=== PATIENT | male | born 1970 | race Caucasian/White ===

== ENCOUNTER 2020-01-26 18:13 | Inpatient (IN) ==
[2020-01-26] MEDS ORDERED: SODIUM CHLORIDE 0.9% 1000ML 1,000 ML IV ONE (20:02)
--- NOTE | 2020-01-26 20:17 | XRay Report ---
XR chest 1V portable CLINICAL HISTORY: SEPSIS COMPARISON STUDY: No previous studies for comparison. FINDINGS: The heart is normal in size. There are subtle wispy opacities at the base of the right uppe r lobe, within the left midlung zone, as well as the right lung base. A subtle multifocal pneumonitis cannot be excluded. Clinical and radiographic follow-up is recommended. There are no pleural effusio ns.[ IMPRESSION: 1. Subtle bilateral wispy opacities. These could be atelectatic or represent a subtle multifocal pneu monitis. Clinical and radiographic follow-up is recommended. ACT 112: Negative or not required by law. Electronically signed by: Raymundo Oliveira M.D. 01/26/2020 8:16 PM
--- NOTE | 2020-01-26 20:33 | Emergency Department Note ---
Impression & Plan Pneumonia due to 2019 novel coronavirus, SOB (shortness of breath) ED Provider Note NAME: PATRICK LUEVANO AGE: 49 SEX: M : 1970 ARRIVES VIA: Walk-In INFORMANT: Patient, ED PROVIDER(S): Zaid Maldonado DO CHIEF COMPLAINT: Cough HPI: The patient is a 49-year-old male who presented to the emergency department for an evaluation of fever and cough. The patient's been having ongoing symptoms over the last few weeks. He was tested for COVID-19 and was positive. He had multiple exposures with family members who are also positive for COVID- 19. He has been experiencing intermittent fevers. He has been taking Motrin and Tylenol with some relief of his symptoms. He has noticed an intermittently productive cough. He denies having any chest pain or lower extremity swelling. He has not seen his family doctor for the symptoms. ROS: See above HPI for pertinent positives & negatives. A total of 10 systems reviewed and were otherwise negative. PAST MEDICAL HISTORY: See Below PAST SURGICAL HISTORY: See Below FAMILY HISTORY: See Below SOCIAL HISTORY: See Below HOME MEDICATIONS: See Below ALLERGIES: See Below VITALS: See Below PHYSICAL EXAMINATION: GENERAL: Patient is awake alert in no acute distress patient is resting comfortably and showing no signs of anxiety EYES: The conjunctivae are clear. The pupils are round and reactive. EARS, NOSE, MOUTH AND THROAT: The nose is without any evidence of any deformity. Mucous membranes are moist. Tongue is midline. NECK: The neck is nontender and supple. RESPIRATORY: Diminished breath sounds are noted throughout. There is no wheezing noted. CARDIOVASCULAR: Regular rate and rhythm noted there no murmurs rubs or gallops normal S1 normal S2. GASTROINTESTINAL: The abdomen is soft. Abdomen is nontender. MUSCULOSKELETAL/EXTREMITIES: There is no evidence of gross deformity full range of motion is noted in the hips and shoulders. SKIN: There is no obvious evidence of any rash. There are no petechiae, pallor or cyanosis noted. NEUROLOGIC: Patient is awake alert and oriented x3 strength is symmetric patellar reflexes are 2+ bilaterally MEDICAL DECISION MAKING: The patient is a 49-year-old male who presented to the emergency department for an evaluation of cough and difficulty breathing. The patient's been experiencing febrile illness. Multiple family members were positive for COVID-1 9. The patient was tested and was positive for COVID-19. His symptoms started to worsen especially over the last 24 to 48 hours. He was found to have significant tachypnea and bronchospasm. I discussed the patient's laboratory and radiographic studies with him. Chest x-ray does appear to be consistent with bilateral pneumonia which is likely due to Covid. The patient's oxygen saturation was acceptable but fluctuated from the low 90s to the middle 90s. Given these findings I feel the patient may require further inpatient management. I discussed this case with the on-call [facility]ist. They have agreed to evaluate the patient in the emergency department for further management and disposition. Triage Nursing notes reviewed. Prior medical records reviewed Vital Signs: reviewed and remarkable for tachypnea. Differential diagnosis: Reactive airway disease, pneumonia, pneumothorax, COPD, CHF, infections, cardiac ischemia, pulmonary embolism, musculoskeletal, gastrointestinal, as well as other pathologies. ER treatment provided: See below Diagnostics interpreted by me: ECG: EKG was obtained in the emergency department. My interpretation is normal sinus rhythm at 87 bpm. There is no ectopy. There is no acute ST segment abnormalities noted. This was compared to a tracing from February 202018. No significant changes were noted. Cardiac Monitoring: An order was placed for continuous cardiac monitoring. The monitor shows a rate of 98 bpm with sinus rhythm. Laboratory studies: As stated above and show below. Imaging studies: See below Consultation(s): I discussed this case with Dr. Metaclf who is on-call for the [facility]ist group. 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 Social History Smoking Status: Never smoker Feels Safe at Home: Yes Allergies Allergies Allergy/AdvReac Type Severity Reaction Status Date / Time No Known Allergies Allergy Verified 01/26/20 22:11 Home Meds Home Medications Medication Instructions Recorded Confirmed acetaminophen [Tylenol Extra 1,000 mg PO Q6H PRN 01/26/20 01/26/20 Strength] ibuprofen [Motrin IB] 400 mg PO Q6H PRN 01/26/20 01/26/20 Results & Data (ED) Vital Signs Vital Signs - 24 hr 01/26/20 18:21 01/26/20 20:13 01/26/20 21:00 Temperature 37.0 C Temperature Source Oral Pulse Rate 96 H 91 H Pulse Rate [Left Finger] 95 H Pulse Rate from SpO2 Sensor 91 H Respiratory Rate 18 20 Respiratory Effort / Characteristics Non-Labored Spontaneous Respiratory Depth Normal Respiratory Pattern Regular Blood Pressure 104/66 122/72 Blood Pressure [Right Arm] 122/72 Blood Pressure Mean 78 78 Blood Pressure Mean [Right Arm] 88 Blood Pressure Position Sitting Pulse Oximetry 97 92 95 Oxygen Delivery Method Room Air Room Air Sepsis Recent Fever Within 48 Hours No Sepsis New/Unexplained Change in Mental Status N/A Sepsis Action Taken by Nursing No Action Required 01/26/20 21:29 01/26/20 21:30 01/26/20 22:00 Temperature Temperature Source Pulse Rate 90 88 92 H Pulse Rate [Left Finger] Pulse Rate from SpO2 Sensor 90 88 93 H Respiratory Rate 24 23 26 H Respiratory Effort / Characteristics Respiratory Depth Respiratory Pattern Blood Pressure 141/81 H 133/86 Blood Pressure [Right Arm] Blood Pressure Mean 97 99 Blood Pressure Mean [Right Arm] Blood Pressure Position Pulse Oximetry 94 95 95 Oxygen Delivery Method Sepsis Recent Fever Within 48 Hours Sepsis New/Unexplained Change in Mental Status Sepsis Action Taken by Nursing 01/26/20 22:30 Temperature Temperature Source Pulse Rate 94 H Pulse Rate [Left Finger] Pulse Rate from SpO2 Sensor 95 H Respiratory Rate 25 H Respiratory Effort / Characteristics Respiratory Depth Respiratory Pattern Blood Pressure 125/85 Blood Pressure [Right Arm] Blood Pressure Mean 93 Blood Pressure Mean [Right Arm] Blood Pressure Position Pulse Oximetry 94 Oxygen Delivery Method Sepsis Recent Fever Within 48 Hours Sepsis New/Unexplained Change in Mental Status Sepsis Action Taken by Long Term Medications Current Medication List: was personally reviewed by me Laboratory Data Attestation: I reviewed the patient's lab results. Result diagrams: 01/26/20 20:13 01/26/20 20:13 Lab Results 01/26/20 01/26/20 01/26/20 Range/Units 20:13 20:13 20:13 WBC 4.39 L (4.8-10.8) K/uL RBC 5.20 (4.7-6.1) M/uL Hgb 15.6 (14.0-18.0) g/dL Hct 45.6 (42-52) % MCV 87.7 (80-100) fL MCH 30.0 (25-34) pg MCHC 34.2 (32-36) g/dL RDW Std Deviation 43.2 (36.4-46.3) fL RDW Coeff of Elma 13.4 (11.5-14.5) % Plt Count 134 (130-400) K/uL MPV 10.2 (7.4-10.4) fL Immature Gran % (Auto) 0.2 % Neut % (Auto) 65.4 % Lymph % (Auto) 21.0 % Person % (Auto) 13.2 % Eos % (Auto) 0.0 % Baso % (Auto) 0.2 % Neut # (Auto) 2.87 (1.4-6.5) K/uL Lymph # (Auto) 0.92 L (1.2-3.4) K/uL Person # (Auto) 0.58 (0.11-0.59) K/uL Eos # (Auto) 0.00 (0-0.5) K/uL Baso # (Auto) 0.01 (0-0.2) K/uL Immature Gran # (Auto) 0.01 (0.00-0.02) K/uL PT 10.5 (9.0-12.0) Seconds INR 1.0 (0.9-1.1) APTT 34.6 H (21.0-31.0) Seconds PTT Ratio 1.2 Sodium 136 (136-145) mmol/L Potassium 3.8 (3.5-5.1) mmol/L Chloride 103 (98-107) mmol/L Carbon Dioxide 28 (21-32) mmol/L Anion Gap 5.0 (3-11) BUN 17 (7-18) mg/dl Creatinine 1.35 (0.6-1.4) mg/dl Est Cr Clr Drug Dosing 88.4 ml/min Est GFR ( Amer) 70.4 Est GFR (Non-Af Amer) 60.8 BUN/Creatinine Ratio 12.2 (10-20) Glucose 91 (70-99) mg/dl Lactate (0.4-2.0) mmol/L Calcium 8.3 L (8.5-10.1) mg/dl Magnesium 2.3 (1.8-2.4) mg/dl Total Bilirubin 0.9 (0.2-1) mg/dl AST 37 (15-37) U/L ALT 30 (12-78) U/L Alkaline Phosphatase 67 (45-117) U/L Troponin I < 0.015 (0-0.045) ng/ml Total Protein 7.5 (6.4-8.2) gm/dl Albumin 3.7 (3.4-5.0) gm/dl Globulin 3.8 (2.5-4.0) gm/dl Albumin/Globulin Ratio 1.0 (0.9-2) Procalcitonin (0-0.5) ng/ml 01/26/20 01/26/20 Range/Units 20:13 20:13 WBC (4.8-10.8) K/uL RBC (4.7-6.1) M/uL Hgb (14.0-18.0) g/dL Hct (42-52) % MCV (80-100) fL MCH (25-34) pg MCHC (32-36) g/dL RDW Std Deviation (36.4-46.3) fL RDW Coeff of Elma (11.5-14.5) % Plt Count (130-400) K/uL MPV (7.4-10.4) fL Immature Gran % (Auto) % Neut % (Auto) % Lymph % (Auto) % Person % (Auto) % Eos % (Auto) % Baso % (Auto) % Neut # (Auto) (1.4-6.5) K/uL Lymph # (Auto) (1.2-3.4) K/uL Person # (Auto) (0.11-0.59) K/uL Eos # (Auto) (0-0.5) K/uL Baso # (Auto) (0-0.2) K/uL Immature Gran # (Auto) (0.00-0.02) K/uL PT (9.0-12.0) Seconds INR (0.9-1.1) APTT (21.0-31.0) Seconds PTT Ratio Sodium (136-145) mmol/L Potassium (3.5-5.1) mmol/L Chloride (98-107) mmol/L Carbon Dioxide (21-32) mmol/L Anion Gap (3-11) BUN (7-18) mg/dl Creatinine (0.6-1.4) mg/dl Est Cr Clr Drug Dosing ml/min Est GFR ( Amer) Est GFR (Non-Af Amer) BUN/Creatinine Ratio (10-20) Glucose (70-99) mg/dl Lactate 0.9 (0.4-2.0) mmol/L Calcium (8.5-10.1) mg/dl Magnesium (1.8-2.4) mg/dl Total Bilirubin (0.2-1) mg/dl AST (15-37) U/L ALT (12-78) U/L Alkaline Phosphatase (45-117) U/L Troponin I (0-0.045) ng/ml Total Protein (6.4-8.2) gm/dl Albumin (3.4-5.0) gm/dl Globulin (2.5-4.0) gm/dl Albumin/Globulin Ratio (0.9-2) Procalcitonin < 0.05 (0-0.5) ng/ml Administered Medications Discontinued Medications Sodium Chloride (Nss 1000ml) 1,000 mls @ 999 mls/hr IV .Q1H1M ONE Stop: 01/26/20 21:02 Last Infusion: 01/26/20 21:55 Dose: 0 mls/hr Documented by: [id number] Admin: 01/26/20 20:54 Dose: 999 mls/hr Documented by: [id number] Imaging Data Radiologist's Impression: Patient: PATRICK LUEVANO EAdmit Date: 01/26/20#: [id number]: [address] [id number]: Date: 1970[facility] Zip: [place] [address]Jer: 49Location: EDSex: MRoom/Bed:Att Phy:Diagnosis: COVID +, SYMPTOMS WORSEPri Phy: PCP,NOService Date: 01/26/20Fam Phy:Interpreting Phy: Raymundo Oliveira [facility] Phy: Ordering Phy: Zaid Maldonado DO cc: ~ XR chest 1V portable CLINICAL HISTORY: SEPSIS COMPARISON STUDY: No previous studies for comparison. FINDINGS: The heart is normal in size. There are subtle wispy opacities at the base of the right upper lobe, within the left midlung zone, as well as the right lung base. A subtle multifocal pneumonitis cannot be excluded. Clinical and radiographic follow-up is recommended. There are no pleural effusions.[ IMPRESSION: 1. Subtle bilateral wispy opacities. These could be atelectatic or represent a subtle multifocal pneumonitis. Clinical and radiographic follow-up is recommended. ACT 112: Negative or not required by law. Electronically signed by: Raymundo Oliveira M.D. 01/26/2020 8:16 PM Dictated: 01/26/202013Transcribed: 01/26/202013 Blood Pressure Blood Pressure Findings: Normal blood pressure Discharge Plan Visit Data Chief Complaint: Illness Stated Complaint: COVID +, SYMPTOMS WORSE ED Provider: Zaid Maldonado Discharge Problem: Pneumonia due to 2019 novel coronavirus, SOB (shortness of breath) Patient Disposition: Being Evaluated by Hospitalist Condition: Good Forms Stand Alone Forms: [employer] Prescriptions Prescriptions: No Action acetaminophen [Tylenol Extra Strength] 500 mg Tablet 1,000 mg PO Q6H PRN (Reason: Fever Or Pain) RF: 0 ibuprofen [Motrin IB] 200 mg Tablet 400 mg PO Q6H PRN (Reason: Fever Or Pain) RF: 0 Referrals Referrals: PCP,NO [Primary Care Provider] -
[2020-01-26 20:41] LABS: Basophils # (auto) 0.01 K/uL (0-0.2); Basophils % (auto) 0.2 %; Hematocrit (blood only) 45.6 % (42-52); Hemoglobin 15.6 g/dL (14.0-18.0); Immature Granulocytes # (auto) 0.01 K/uL (0.00-0.02); Immature Granulocytes % (auto) 0.2 %; Lymphocytes # (auto) 0.92 K/uL (1.2-3.4); Mean Corpuscular Hgb Conc 34.2 g/dL (32-36); Mean Corpuscular Volume 87.7 fL (80-100); Mean Platelet Volume 10.2 fL (7.4-10.4); Monocytes # (auto) 0.58 K/uL (0.11-0.59); Monocytes % (auto) 13.2 %; Neutrophils # (auto) 2.87 K/uL (1.4-6.5); Neutrophils % (auto) 65.4 %; Platelet Count 134 K/uL (130-400); RDW Coefficient of Variation 13.4 % (11.5-14.5); RDW Standard Deviation 43.2 fL (36.4-46.3); White Blood Count 4.39 K/uL (4.8-10.8)
[2020-01-26 20:49] LABS: Partial Thromboplastin Ratio 1.2; Partial Thromboplastin Time 34.6 Seconds (21.0-31.0); Prothrombin Time 10.5 Seconds (9.0-12.0)
[2020-01-26 20:56] LABS: Alanine Aminotransferase 30 U/L (12-78); Albumin Level 3.7 gm/dl (3.4-5.0); Aspartate Aminotransferase 37 U/L (15-37); BUN Creatinine Ratio 12.2 (10-20); Blood Urea Nitrogen 17 mg/dl (7-18); Calcium 8.3 mg/dl (8.5-10.1); Carbon Dioxide 28 mmol/L (21-32); Chloride 103 mmol/L (98-107); Creatinine Clr Calc Pharmacy 88.4 ml/min; Est GFR (African American) 70.4; Est GFR (Non-African American) 60.8; Glucose 91 mg/dl (70-99); Magnesium 2.3 mg/dl (1.8-2.4); Potassium 3.8 mmol/L (3.5-5.1); Sodium 136 mmol/L (136-145)
[2020-01-26 21:01] LABS: Alkaline Phosphatase 67 U/L (45-117); Bilirubin,Total 0.9 mg/dl (0.2-1); Globulin 3.8 gm/dl (2.5-4.0); Total Protein 7.5 gm/dl (6.4-8.2); Troponin I < 0.015 ng/ml (0-0.045)
[2020-01-27 00:07] LABS: D Dimer 1110 ug/L FEU (0-500)
[2020-01-27] MEDS ORDERED: cefTRIAXone SODIUM 2000MG/70ML D5W IV ONE (01:03)
[2020-01-27] MEDS: cefTRIAXone SODIUM 2,000 MG in DEXTROSE 5% 50 ML IV SCH (01:26)
[2020-01-27] MEDS ORDERED: OPTIRAY 320 125ml IV ONE (02:14)
[2020-01-27] MEDS ORDERED: ACETAMINOPHEN 325 MG TAB PO PRN (02:28)
[2020-01-27] MEDS ORDERED: ENOXAPARIN 1 MG/KG SC SCH (02:28)
[2020-01-27] MEDS ORDERED: ONDANSETRON INJ 2 MG/ML 2 ML VIAL IV PRN (02:28)
[2020-01-27] MEDS ORDERED: REMDESIVIR 200 MG in SODIUM CHLORIDE 0.9% 210 ML IV STA (02:28)
[2020-01-27] MEDS: AZITHROMYCIN 500 MG in DEXTROSE 5% 250 ML IV SCH (02:31)
[2020-01-27] MEDS: NSS + 20MEQ KCL 20 MEQ/1,000 ML BAG IV SCH ×2 (05:33→14:55)
[2020-01-27] MEDS: ENOXAPARIN INJ 120 MG/0.8 ML SYR SQ SCH ×2 (05:34→15:02)
[2020-01-27] MEDS: SODIUM CHLORIDE 0.9% 10ML FLUSH IV SCH (05:34)
[2020-01-27] MEDS: BENZONATATE 100 MG CAPSULE PO PRN (05:35)
--- NOTE | 2020-01-27 06:12 | History & Physical Report ---
Date of Service January 27, 2020 Assessment & Plan (1) Pneumonia due to 2019 novel coronavirus: Pneumonia due to COVID-19/multifocal pneumonia/hypoxia- Admit to monitored bed with negative pressure Decadron 6 mg IV daily Remdesivir IV per protocol Ceftriaxone 2 g IV daily Azithromycin 500 mg IV daily Ventolin HFA 2 puffs 4 times daily and every 2 hours as needed Present on Admission?: Yes (2) Multifocal pneumonia: See above Present on Admission?: Yes (3) Hypoxia: Patient is requiring 4 L nasal cannula oxygen to obtain pulse ox of 93% Present on Admission?: Yes (4) Elevated d-dimer: D-dimer was 1110. CT angiography PE protocol was negative for PE. Venous Dopplers pending. Change empiric Lovenox 1 mg/kg every 12 hours to every 24 hours. May decrease to 0.5 mg/kg every 24 hours if venous Dopplers negative. Present on Admission?: Yes Admission and Anticipated Discharge Date Admission Date: January 27, 2020 History of Present Illness Chief Complaint: The patient presents to the emergency department with worsening fever, cough, and fatigue, after having been tested for COVID-19 on 01/[address] [facility], and reported a positive test on 01/22. Primary Care Provider: NO PCP The patient is a 49-year-old male with a past medical history of Lyme carditis, who presents as noted above. The patient has had multiple exposures with family members who also tested positive for COVID-19. He had been taking Motrin and Tylenol with minimal relief of symptoms. As noted above, he has had progressively worsening symptoms over the past 5 days. In the emergency department, patient had x-ray which showed a bilateral multifocal pneumonia. D- dimer added to ED laboratories was elevated at 1110. 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 Social History Smoking Status: Never smoker Hx Alcohol Use: No Hx Substance Use: No Preferred Language: Spanish Current Living Situation: Spouse Feels Safe at Home: Yes Safety Concerns: Feels Safe At This Time Review of Systems Review of Systems: The patient denies chest pain, palpitations, lower extremity swelling, sore throat, chills, sweats, nausea, vomiting, diarrhea , constipation, abdominal pain, pelvic pain, blood in urine or stool, dysuria, urinary frequency or urgency, lightheadedness, dizziness, memory loss, loss of consciousness, rash, abnormal bruising or bleeding, imbalance, focal or generalized weakness, numbness or tingling in arms or legs, generalized arthralgias or myalgias, back or neck pain, or night sweats. The review of systems is otherwise negative other than for that already noted above, and at least 10 systems have been reviewed. Physical Exam Physical Exam: The patient is awake, alert and oriented 3, well developed and well nourished, normocephalic and atraumatic, lying in bed and in mild acute distress. HEENT--PERRL, EOMI, mucous membranes and oropharynx dry. Neck--supple. No JVD. No bruits. Thyroid normal, trachea midline, no adenopathy. Heart--normal S1 and S2. No murmurs, rubs or gallops. Lungs--coarse breath sounds with scattered wheezes bilaterally. Mild respiratory distress, no accessory muscle use. Abdomen--normal bowel sounds and soft. Nontender. Nondistended, no hernias or masses, no organomegaly. Extremities--no cyanosis or clubbing. No edema. Dermatologic--normal skin turgor, normal color, no abnormal lymph nodes, no rash. Neurologic--cranial nerves II through XII grossly intact. Rheumatologic--normal range of motion. Psychiatric--normal affect. Results & Data Results & Data ([facility]) Vital Signs (Past 12 Hours) Vital Signs Temp Pulse Pulse Resp BP BP Pulse Ox 01/27/20 05:42 90 01/27/20 02:50 99.5 F 90 18 112/68 93 01/27/20 01:28 90 18 124/87 95 01/27/20 00:53 94 H 18 144/85 H 92 01/26/20 22:30 94 H 25 H 125/85 94 01/26/20 22:00 92 H 26 H 133/86 95 01/26/20 21:30 88 23 141/81 H 95 01/26/20 21:29 90 24 94 01/26/20 21:00 98.6 F 91 H 95 H 20 122/72 122/72 95 01/26/20 20:13 92 01/26/20 18:21 96 H 18 104/66 97 Laboratory Results Laboratory Results WBC 4.39 K/uL (4.8-10.8) L 01/26/20 20:13 RBC 5.20 M/uL (4.7-6.1) 01/26/20 20:13 Hgb 15.6 g/dL (14.0-18.0) 01/26/20 20:13 Hct 45.6 % (42-52) 01/26/20 20:13 MCV 87.7 fL (80-100) 01/26/20 20:13 MCH 30.0 pg (25-34) 01/26/20 20:13 MCHC 34.2 g/dL (32-36) 01/26/20 20:13 RDW Std Deviation 43.2 fL (36.4-46.3) 01/26/20 20:13 RDW Coeff of Elma 13.4 % (11.5-14.5) 01/26/20 20:13 Plt Count 134 K/uL (130-400) 01/26/20 20:13 MPV 10.2 fL (7.4-10.4) 01/26/20 20:13 Immature Gran % (Auto) 0.2 % 01/26/20 20:13 Neut % (Auto) 65.4 % 01/26/20 20:13 Lymph % (Auto) 21.0 % 01/26/20 20:13 [place] % (Auto) 13.2 % 01/26/20 20:13 Eos % (Auto) 0.0 % 01/26/20 20:13 Baso % (Auto) 0.2 % 01/26/20 20:13 Neut # (Auto) 2.87 K/uL (1.4-6.5) 01/26/20 20:13 Lymph # (Auto) 0.92 K/uL (1.2-3.4) L 01/26/20 20:13 [place] # (Auto) 0.58 K/uL (0.11-0.59) 01/26/20 20:13 Eos # (Auto) 0.00 K/uL (0-0.5) 01/26/20 20:13 Baso # (Auto) 0.01 K/uL (0-0.2) 01/26/20 20:13 Immature Gran # (Auto) 0.01 K/uL (0.00-0.02) 01/26/20 20:13 PT 10.5 Seconds (9.0-12.0) 01/26/20 20:13 INR 1.0 (0.9-1.1) 01/26/20 20:13 APTT 34.6 Seconds (21.0-31.0) H 01/26/20 20:13 PTT Ratio 1.2 01/26/20 20:13 D-Dimer 1110 ug/L FEU (0-500) H* 01/26/20 20:13 Sodium 136 mmol/L (136-145) 01/26/20 20:13 Potassium 3.8 mmol/L (3.5-5.1) 01/26/20 20:13 Chloride 103 mmol/L (98-107) 01/26/20 20:13 Carbon Dioxide 28 mmol/L (21-32) 01/26/20 20:13 Anion Gap 5.0 (3-11) 01/26/20 20:13 BUN 17 mg/dl (7-18) 01/26/20 20:13 Creatinine 1.35 mg/dl (0.6-1.4) 01/26/20 20:13 Est Cr Clr Drug Dosing 88.4 ml/min 01/26/20 20:13 Est GFR ( Amer) 70.4 01/26/20 20:13 Est GFR (Non-Af Amer) 60.8 01/26/20 20:13 BUN/Creatinine Ratio 12.2 (10-20) 01/26/20 20: Glucose 91 mg/dl (70-99) 01/26/20 20:13 Lactate 0.9 mmol/L (0.4-2.0) 01/26/20 20:13 Calcium 8.3 mg/dl (8.5-10.1) L 01/26/20 20:13 Magnesium 2.3 mg/dl (1.8-2.4) 01/26/20 20:13 Total Bilirubin 0.9 mg/dl (0.2-1) 01/26/20 20:13 AST 37 U/L (15-37) 01/26/20 20:13 ALT 30 U/L (12-78) 01/26/20 20:13 Alkaline Phosphatase 67 U/L (45-117) 01/26/20 20:13 Troponin I < 0.015 ng/ml (0-0.045) 01/26/20 20:13 Total Protein 7.5 gm/dl (6.4-8.2) 01/26/20 20:13 Albumin 3.7 gm/dl (3.4-5.0) 01/26/20 20:13 Globulin 3.8 gm/dl (2.5-4.0) 01/26/20 20:13 Albumin/Globulin Ratio 1.0 (0.9-2) 01/26/20 20:13 Procalcitonin < 0.05 ng/ml (0-0.5) 01/26/20 20:13 Diagnostic Findings [facility], [phone] XRay Report Patient: PATRICK LUEVANO EAdmit Date: 01/26/20MR#: [id number]: [address] [id number]: Date: 1970[facility] Zip: [place], [place] [address]Nrs: 49Location: EDSex: MRoom/Bed:Att Phy:Diagnosis: COVID +, SYMPTOMS WORSEPri Phy: PCP,NOService Date: 01/26/20Fa Phy:Interpreting Phy: Raymundo Oliveira [facility] Phy: Ordering Phy: Zaid Maldonado DO cc: ~ XR chest 1V portable CLINICAL HISTORY: SEPSIS COMPARISON STUDY: No previous studies for comparison. FINDINGS: The heart is normal in size. There are subtle wispy opacities at the base of the right upper lobe, within the left midlung zone, as well as the right lung base. A subtle multifocal pneumonitis cannot be excluded. Clinical and radiographic follow-up is recommended. There are no pleural effusions.[ IMPRESSION: 1. Subtle bilateral wispy opacities. These could be atelectatic or represent a subtle multifocal pneumonitis. Clinical and radiographic follow-up is recommended. ACT 112: Negative or not required by law. Electronically signed by: Raymundo Oliveira M.D. 01/26/2020 8:16 PM Dictated: 01/26/202013Transcribed: 01/26/202013 [facility] Patient: PATRICK LUEVANO (Male) : 68 Status: IP Date: 01/27/20 02:13 Room #: 252 History: POSITIVE COVID, ELEVATED DDIMER, R/O PE, COUGH AND SOB Slices: [id number] Priors: Tech: Kevin Batista @ [phone] Exams: CTA CHEST Contrast: IV Amt: 110 ML OPTIRAY 320 Accession Numbers: [id number] Preliminary Findings Only See Final Report For Complete Findings CTA CHEST: No acute pulmonary embolism. Multifocal opacities throughout both lungs predominantly involving the periphery, compatible with an acute infectious/inflammatory process. No pleural effusion. Prominent mediastinal lymph nodes are presumably reactive. Radiologist: Anjana Lomeli M.D. Study ready at 02:16 and initial results transmitted at 02:23 Results also transmitted to [facility] ([id number]) @ [phone] (Fax) *This report constitutes a preliminary interpretation only. Non-acute findings felt to be unrelated to the clinical presentation may not be discussed in this report. The study will be interpreted and a final report will be generated by the local Radiologist the following shift. To reach the hospital radiology department call [phone]. If a discrepancy is found between the preliminary and final interpretations of this study, please notify us via our Client Portal at [email or web address], under QA Exams.You can also fax this report with a description of the discrepancy, or include the final report, to our daytime fax number [phone].If faxing, please indicate the severity of discrepancy using one of the following categories: [ ] 1 - Agree/Informational [ ] 2 - Unlikely to Affect Management [ ] 3 - Possible Eventual Change of Management [ ] 4 - Probable Immediate Change of Management For all other patient related information, please fax us at [phone]. [id number] Code Status & VTE Plan Code Status Full code VTE Prophylaxis Plan VTE Prophylaxis will be ordered: Yes PG Care Time/CCT Total # of Minutes Spent Total Time Spent with Patient: Total time spent is greater than 50% in coordination of care (as documented) at patient's floor/unit and/or counseling patient: Coding Level of Care Code 11672 Initial Inpt Care Lvl 3 Diagnoses Pneumonia due to 2019 novel coronavirus U07.1; J12.89 Multifocal pneumonia J18.9 Hypoxia R09.02 Elevated d-dimer R79.89
[2020-01-27] MEDS: ALBUTEROL HFA 8 GM INHALER INH SCH ×4 (07:02→19:39)
--- NOTE | 2020-01-27 07:11 | CT Scan Report ---
CT angio chest PE protocol CT DOSE: 559.02 mGycm HISTORY: 49 years-old Male with elevated d-dimer, COVID - 19 +. Acute shortness of breath with coug h TECHNIQUE: Multiple CTA images of the chest were obtained after the intravenous administration of 110 ml Optiray 320. Coronal and sagittal MIPS were obtained from the axial data set and were submitted for review. All measurements were obtained according to NASCET criteria. A dose lowering technique w as utilized adhering to the principles of ALARA. COMPARISON: Chest radiograph 01/26/2020 FINDINGS: CTA: The heart is normal in size. No pericardial effusion. There is no thoracic aortic aneurysm or dissect ion. There is patency of the imaged great vessels. The pulmonary artery is opacified to the level of the distal segmental branches and demonstrates no filling defects to suggest thromboembolic disease. CT CHEST: Unremarkable thyroid. Prominent mediastinal and hilar lymph nodes measure up to 9 mm. No pneumothorax or pleural effusion. Bilateral subpleural and peripheral predominant groundglass and consolidative o pacities are present within all lobes bilaterally. Central airways are patent. No overt pulmonary johann ma or suspicious pulmonary nodules identified. There is no acute process of the imaged upper abdomen. Soft tissues are within normal limits. Healed remote fracture of the distal right clavicle. No suspicious bone lesions. IMPRESSION: 1. No evidence of pulmonary thromboembolic disease. 2. Bilateral subpleural and peripheral predominant groundglass and minimal consolidative opacities ar e compatible with a nonspecific pneumonitis, most suspicious for viral pneumonia. 3. Prominent mediastinal and hilar lymph nodes are likely reactive. ACT 112: Negative or not required by law. The above report was generated using voice recognition software. It may contain grammatical, syntax o r spelling errors. Electronically signed by: Alin Hall M.D. 01/27/2020 7:10 AM
[2020-01-27] MEDS: DEXAMETHASONE SOD PHOSPHATE 6 MG in SYRINGE 0 ML IV SCH (08:46)
[2020-01-27] MEDS ORDERED: BENZONATATE 100 MG CAPSULE PO PRN (09:00)
[2020-01-27] MEDS ORDERED: DEXAMETHASONE SOD INJ 10 MG/ML VIAL IV SCH (09:00)
[2020-01-27 09:29] LABS: Appearance Urine Clear (Clear); Bacteria Urine Automated Negative (Negative); Bilirubin Urine Negative (Negative); Blood Urine Negative (Negative); Color Urine Yellow; Glucose Urine UA Negative (Negative); Ketones Urine Trace (Negative); Leukocyte Esterase Urine Negative (Negative); Nitrite Urine Negative (Negative); Protein Urine 1+ (Negative); RBC Urine Automated 0-4 /hpf (0-4); Specific Gravity Urine > 1.045 (1.000-1.030); Urobilinogen Urine Negative (Negative)
[2020-01-28] MEDS: cefTRIAXone SODIUM 2,000 MG in DEXTROSE 5% 50 ML IV SCH (00:07)
[2020-01-28] MEDS: AZITHROMYCIN 500 MG in DEXTROSE 5% 250 ML IV SCH (00:59)
[2020-01-28] MEDS: NSS + 20MEQ KCL 20 MEQ/1,000 ML BAG IV SCH ×2 (00:59→11:51)
[2020-01-28] MEDS: BENZONATATE 100 MG CAPSULE PO PRN (02:35)
[2020-01-28] MEDS ORDERED: REMDESIVIR 100 MG in SODIUM CHLORIDE 0.9% 230 ML IV SCH (03:00)
[2020-01-28] MEDS: SODIUM CHLORIDE 0.9% 10ML FLUSH IV SCH (04:16)
[2020-01-28] MEDS: ENOXAPARIN INJ 120 MG/0.8 ML SYR SQ SCH (04:34)
[2020-01-28] MEDS: ALBUTEROL HFA 8 GM INHALER INH SCH (07:51)
[2020-01-28] MEDS: DEXAMETHASONE SOD PHOSPHATE 6 MG in SYRINGE 0 ML IV SCH (07:54)
--- NOTE | 2020-01-28 08:44 | Electrocardiogram Report ---
Test Reason : Blood Pressure : / mmHG Vent. Rate : 087 BPM Atrial Rate : 087 BPM P-R Int : 188 ms QRS Dur : 088 ms QT Int : 342 ms P-R-T Axes : 037 034 037 degrees QTc Int : 411 ms Normal sinus rhythm Normal ECG When compared with ECG of 20-FEB-2019 14:04, Vent. rate has increased BY 34 BPM Confirmed by Brennon Dickens ([id number]) on 01/28/2020 8:44:10 AM Referred By: REFERRED SELF Confirmed By:Brennon Dickens
--- NOTE | 2020-01-28 11:16 | Discharge Summary ---
Date of Service January 28, 2020 Admission HPI Per Admitting Provider The patient is a 49-year-old male with a past medical history of Lyme carditis, who presents as noted above. The patient has had multiple exposures with family members who also tested positive for COVID-19. He had been taking Motrin and Tylenol with minimal relief of symptoms. As noted above, he has had progressively worsening symptoms over the past 5 days. In the emergency department, patient had x-ray which showed a bilateral multifocal pneumonia. D- dimer added to ED laboratories was elevated at 1110. Principal Diagnosis COVID 19 pneumonia Discharge Exam Constitutional WD/WN, vitals as above Neck trachea midline, no thyromegaly Respiratory normal respiratory effort, lungs clear to auscultation Cardiovascular RRR, no murmur, no edema Gastrointestinal (Abdomen) normal bowel sounds, soft, nontender, no hepatosplenomegaly Musculoskeletal no cyanosis or clubbing, extremities motor strength 5/5 Skin no rashes, warm and dry Neurologic patellar DTR's 2+ bilat, sensation intact and PERRL, EOMI, accommodation nl, no face palsy, no dysarthria Psychiatric A+Ox3, euthymic affect Lymphatic no cervical or axillary lymphadenopathy Discharge Data Allergies Allergy/AdvReac Type Severity Reaction Status Date / Time No Known Allergies Allergy Verified 01/26/20 22:11 Consultations 01/26/20 22:16 ED Decision to Admit Stat 01/27/20 02:28 Consult Case Management - Discharge Planning Routine Ordered Studies 01/27/20 00:11 CT angio chest PE protocol Urgent Hospital Course (1) Pneumonia due to 2019 novel coronavirus: Pneumonia due to COVID-19/multifocal pneumonia/hypoxia- treated with Dexamethasone and Remdesivir started on Ceftriaxone and Azithromycin to cover for possible secondary bacterial infection responded quickly to treatment, titrated off of oxygen he is eating and drinking well, no fever/chills he says his sense of taste has returned will discharge to home on Dexamethasone, no need for further Remdesivir as he is on room air will send home on Zithromax stay in quarantine for 7 more days (2) Multifocal pneumonia: See above (3) Hypoxia: initially on 4L but no signs of distress quickly titrated to room air (4) Elevated d-dimer: D-dimer was 1110. CT angiography PE protocol was negative for PE elevated D dimer is just inflammatory response to COVID Total Time Total Time Spent Total Time Spent (In Minutes): 35 minutes Total Time Includes: Examination of the Patient, Discharge Planning and Medication Reconciliation Discharge Plan Discharge Items Patient Disposition: Home - Self-Care Reason For Visit: COVID 19 PNEUMONIA Discharge Diagnosis: COVID 19 pneumonia Condition on Discharge: Good Goals: complete course of Decadron and antibiotics get rest, stay well hydrated and well nourished Activity: Resume your previous activity Weightbearing: Full weightbearing Non-emergency contact: Primary Care Provider Call non-emergency contact if: you have any medication questions Follow-up/Referrals: PCP,NO [Primary Care Provider] - Diet: Regular Addtl Attending Provider Instructions: Medications: - DEXAMETHASONE: 6mg daily x 7 more days, start tomorrow - CEFDINIR: 300mg twice a day for 3 more days, start tomorrow - ZITHROMAX: 250mg daily for 3 more days, start tomorrow - CODEINE: take as needed for cough - ZINC: 200mg daily x 7 days, should be able to obtain over the counter Covid 19 pneumonia, hypoxia titrated off of oxygen, will be normal for you to feel short of breath on exertion the next week or two as long as your pulse ox is > 88% you do not need to be in the hospital you should continue to improve with treatment, complete the above medications stay well rested, well hydrated and well nourished the next week you need to remain quarantined for 7 more days Pending Studies at Discharge: No Stand-Alone Forms: My [facility] Sud[facility]ha, Smoking Cessation Medications and DC Order Prescriptions: New dexamethasone 2 mg tablet 6 mg PO DAILY 7 Days Qty: 21 RF: 0 azithromycin [Zithromax] 250 mg tablet 250 mg PO DAILY Qty: 3 RF: 0 codeine-guaifenesin 10-100 mg/5 mL liquid 5 ml PO Q6H PRN (Reason: cough) Qty: 120 RF: 0 zinc gluconate 100 mg tablet 200 mg PO DAILY Qty: 14 RF: 0 Continued acetaminophen [Tylenol Extra Strength] 500 mg Tablet 1,000 mg PO Q6H PRN (Reason: Fever Or Pain) RF: 0 ibuprofen [Motrin IB] 200 mg Tablet 400 mg PO Q6H PRN (Reason: Fever Or Pain) RF: 0 Discharge Orders: Discharge Order (Routine); Ordered 01/28/20 Ordered By: Dereck Dietz Admission Data Admit Date/Time: 01/27/20 00:04 Attending Provider: Dereck Dietz Admit Provider: Monico Kern Primary Care Provider: PCP,NO Other Providers: Monico Kern Other Interventions: Discharge Summary Assessment (RN) Last Done: 01/28/20 11:21 Coding Level of Care Code D/C Day Management >30 mins Diagnoses Pneumonia due to 2019 novel coronavirus U07.1; J12.89 Multifocal pneumonia J18.9 Hypoxia R09.02 Elevated d-dimer R79.89
== END 2020-01-28 15:10 | disposition home or self-care (01) | DRG 177 ==
LOC: ED 18:13 → 2W 01-27 00:04 → SUATTDRO 01-27 00:04 → 2W 01-27 01:28 → 2N 01-27 22:38
DX: J12.89 Other viral pneumonia; R09.02 Hypoxemia; R79.1 Abnormal coagulation profile; U07.1 COVID-19